=== PATIENT | female | born 1945 | race Caucasian/White ===

== ENCOUNTER 2017-01-05 13:04 | Emergency (ER) | payer MEDICARE, OTHER ==
--- NOTE | ~2017-01-05 | ER ---
PATIENT'S NAME: BRANDON MENDOZA [facility] AGE: 71 Y [address] ROOM: [place] [address] LOCATION: ED ADMIT DATE: 01/05/2017 ER/Outpatient Report DISCHARGE DATE: 01/05/2017 FAMILY PHYSICIAN: PHYSICIAN, NO ATTENDING PHYSICIAN: Lewis Cowan TIME OF ARRIVAL: 1310 hours. TIME OF EXAM: 1315 hours. CHIEF COMPLAINT: Episode of dizziness. HISTORY OF PRESENT ILLNESS: The patient states approximately 12:30, she was sitting in a chair. She went to get up and felt like everything was spinning around her. She thought if she closed her eyes things would get better, but that did not really help, so she did sit back down on the couch and laid down, but it did not seem to really help. She says she did not feel as though she could focus with her eyes. She reports the whole episode lasted approximately 15 minutes. Upon arrival to the ER, she denies having any symptoms. She reports she had problems with diarrhea last week for approximately 2 days, but has felt fine since then. She did drive here to [place] from [place] 3 days ago. Denies having any shortness of breath, has not had any pain in her legs. Denies having any chest pain. Did not have any chest pain with the episode, was just the dizziness. She denies being nauseated, has not vomited. Has not had a cough. No change in her bowel or bladder pattern. ALLERGIES: NO KNOWN ALLERGIES. CURRENT MEDICATIONS: On her chart and were reviewed by me. PAST MEDICAL HISTORY: Hypertension, hyperlipidemia, and degenerative disease of the low back. SOCIAL HISTORY: She presents to the ER with her son and family members. She lives in [place] and is here visiting. She denies use of tobacco, drugs, or alcohol. REVIEW OF SYSTEMS: All negative other than those mentioned in the HPI. PATIENT'S NAME: BRANDON MENDOZA [facility] AGE: 71 Y [address] ROOM: [place] [address] LOCATION: [facility] ADMIT DATE: 01/05/2017 ER/Outpatient Report DISCHARGE DATE: 01/05/2017 FAMILY PHYSICIAN: PHYSICIAN, NO ATTENDING PHYSICIAN: Lewis Cowan PHYSICAL EXAMINATION: VITAL SIGNS: She states she is 5 feet 6 inches. She weighed 83.2 kg. Blood pressure was 187/83, pulse of 52, respirations 16, temperature of 97.3, and O2 saturations 95% on room air. GENERAL: She is awake, alert, and oriented x4. SKIN: Coin, warm, and dry. RESPIRATIONS: Even and unlabored. HEENT: Pupils are equal and reactive to light. Extraocular movement is intact. Negative nystagmus. Oropharynx is clear. NECK: Supple. No lymphadenopathy. LUNGS: Sounds are clear throughout. HEART: Bradycardic. Regular rate. She has strong pedal pulses. She does have nonpitting edema of the left ankle area. ABDOMEN: Soft, nondistended. Bowel sounds are present. She did walk in with a steady even gait. Moves around without discomfort. IMAGING STUDIES: EKG was completed. It shows sinus susan. LABORATORY DATA: CBC is within normal limits. Chem panel: Sodium is 146, potassium is 3.7, chloride is 112, BUN is 13 with a creatinine of 0.8. CPK 95, CK-MB is 0.9 and troponin is negative. ProBNP is 985. Lactate was 0.8. Procalcitonin was normal. Urine showed leukocytes, but negative bacteria. CT of the head was completed. Radiologist reports no acute abnormalities. The patient was monitored. Vital signs remained stable. Her heart rate did drop down to 49 at one point. O2 saturation remained greater than 92% during that time. Monitor showed sinus rhythm with occasional PAC. She did not have any return of her symptoms. Continued to deny having any chest pain or chest discomfort or feeling short of breath. IMPRESSION: Bradycardia and fluid overload. PLAN: The patient states that she does have Lasix at home that she did not take while she was traveling here from [place]. The patient will go home with her son, rest. Continue current medications. Take the Lasix as prescribed. If symptoms persist or worsen, she is to return to the ER to be seen by her primary provider in the next 1 to 2 days. The patient and her son verbalized understanding. PATIENT'S NAME: BRANDON MENDOZA [facility] AGE: 71 Y [address] ROOM: [place], [place] [address] LOCATION: [facility] ADMIT DATE: 01/05/2017 ER/Outpatient Report DISCHARGE DATE: 01/05/2017 FAMILY PHYSICIAN: PHYSICIAN, FRANDY ATTENDING PHYSICIAN: Lewis Cowan APRN FOR MD STEPHEN GARCIA/nial /[id number] d: 01/05/17 2336 t: 01/14/17 0912, OUTPATIENT REPORT
[2017-01-05 13:43] LABS: BILIRUBIN URINE NEGATIVE (NEGATIVE); BLOOD URINE 10 /UL (NEGATIVE); GLUCOSE URINE NEGATIVE (NEGATIVE); KETONE URINE NEGATIVE (NEGATIVE); LEUKOCYTES URINE 100 /UL (NEGATIVE); NITRITE URINE NEGATIVE (NEGATIVE); PROTEIN URINE NEGATIVE (NEGATIVE); UROBILINOGEN URINE NORMAL (NORMAL)
[2017-01-05 13:44] LABS: BASOPHIL # 0.1 K/uL (0.0-0.2); BASOPHIL % 0.9 %; EOSINOPHIL # 0.2 K/uL (0.0-0.5); EOSINOPHIL % 2.7 %; HEMATOCRIT 37.5 % (33.0-46.0); HEMOGLOBIN 12.6 g/dL (10.0-15.0); IMMATURE GRANULOCYTE % 0.3 %; LYMPHOCYTE % 43.6 %; MCH 29.7 pg (27.0-34.0); MCHC 33.6 gm/dL (32.0-36.5); MCV 88.4 fl (83.0-98.0); MONOCYTE # 0.6 K/uL (0.0-1.0); MONOCYTE % 8.2 %; MPV 9.5 fl (9.4-12.4); NEUTROPHIL # (ANC) 3.1 K/uL (1.8-7.8); NEUTROPHIL % 44.3 %; NRBC % 0 /100WBC (0-0.00); PLATELET COUNT 303 K/uL (150-450); RBC 4.24 M/uL (3.50-5.50); RDW-CV 13.3 % (11.9-14.6); WBC 6.9 K/uL (4.0-11.0)
[2017-01-05 13:46] LABS: COLOR URINE STRAW (YELLOW); TURBIDITY URINE 1+ (CLEAR)
[2017-01-05 13:56] LABS: EPITHELIAL URINE 0-2 #/HPF (NEGATIVE); RBC URINE RARE #/HPF (NEGATIVE); WBC URINE RARE #/HPF (NEGATIVE)
[2017-01-05 13:57] LABS: BACTERIA URINE NEGATIVE (NEGATIVE); MUCUS URINE 1+ (NEGATIVE)
[2017-01-05 14:02] LABS: ALBUMIN 3.6 gm/dL (3.5-5.0); ALK PHOS 87 IU/L (33-138); ALT 46 IU/L (12-78); AST 25 IU/L (10-40); BLOOD UREA NITROGEN 13 mg/dL (6-24); CHLORIDE 112 mMol/L (96-110); CO2 26 mMol/L (22-32); CPK 95 IU/L (21-215); CREATININE 0.8 mg/dL (0.5-1.1); ESTIMATED GFR (MDRD EQUATION) > 60; POTASSIUM 3.7 mMol/L (3.7-5.1); TOTAL BILIRUBIN 0.4 mg/dL (0.0-1.5); TOTAL PROTEIN 6.2 g/dL (6.0-8.4)
[2017-01-05 14:03] LABS: ANION GAP 11.7 (10.0-19.0); SODIUM 146 mMol/L (135-145)
== END 2017-01-05 15:15 | disposition disaster alternative care site (69) ==
LOC: GMED 13:04
PROVIDERS: Nurse Practitioner Family
DX: R00.1 Bradycardia, unspecified (principal); E87.70 Fluid overload, unspecified; I10 Essential (primary) hypertension; E78.5 Hyperlipidemia, unspecified; Z79.899 Other long term (current) drug therapy